=== PATIENT | male | born 1980 | race Caucasian/White ===

== ENCOUNTER 2017-05-06 18:49 | Emergency (ER) | payer MEDICAID ==
[~2017-05-06] VITALS: Ht 190.5 cm; Wt 124.7 kg
[2017-05-06 18:51] VITALS: BP 134/89
[2017-05-06] MEDS ORDERED: DIPH,PERTUSS(ACELL),TET VAC/PF 0.5 ML IM-VACC ONE ×2 (19:30→20:46)
== END 2017-05-06 21:16 | disposition home or self-care (01) ==
LOC: ED 20:05
DX: S91.311A Laceration without foreign body, right foot, initial encounter (principal); G89.11 Acute pain due to trauma; Z79.899 Other long term (current) drug therapy; W16.92XA Jumping or diving into unspecified water causing other injury, initial encounter; Y93.41 Activity, dancing; Y92.89 Other specified places as the place of occurrence of the external cause; Y99.8 Other external cause status
CPT/HCPCS: 12002; 82962; 90471; 90715; 99284

== ENCOUNTER 2017-11-16 19:40 | Emergency (ER) | payer MEDICAID ==
[~2017-11-16] VITALS: Ht 182.9 cm; Wt 126.5 kg
[2017-11-16 20:13] VITALS: BP 141/94
== END 2017-11-16 21:45 | disposition home or self-care (01) ==
LOC: ED 21:37
DX: B35.3 Tinea pedis (principal); Z88.9 Allergy status to unspecified drugs, medicaments and biological substances
CPT/HCPCS: 99282